=== PATIENT | male | born 1980 | race Caucasian/White ===

== ENCOUNTER 2019-06-30 16:49 | Emergency (ER) | payer BC ==
[2019-06-30 17:31] VITALS: BP 125/88
--- NOTE | 2019-06-30 19:04 | UC ---
Elbow Pain - HPI Summary HPI Summary: 38-year-old male presents with complaints of left elbow pain. Reports that 2 weeks ago he slipped while descending some stairs falling directly onto the left elbow. Complained of bruising and swelling to the elbow initially after the injury that has improved his have persistent pain in the elbow since that time. States pain worsens with any type of movement. Has taken over-the- counter ibuprofen with some relief in the pain. Denies any numbness or tingling. - History of Current Complaint Chief Complaint: UCUpperExtremity Stated Complaint: LEFT ELBOW INJURY Time Seen by Provider: 06/30/19 18:46 Hx Obtained From: Patient Pain Intensity: 7 - Allergies/Home Medications Allergies/Adverse Reactions: Allergies Allergy/AdvReac Type Severity Reaction Status Date / Time Penicillins Allergy See Comment Verified 06/30/19 17:31 Home Medications: Home Medications Escitalopram * [Lexapro *] 20 mg PO DAILY 06/05/19 [History Confirmed 06/30/19] Levothyroxine TAB* [Synthroid TAB*] 88 mcg PO 0800 06/05/19 [History Confirmed 06/30/19] amLODIPine TAB* [Norvasc 5 mg TAB*] 5 mg PO DAILY 06/05/19 [History Confirmed ] traZODone TAB* [Desyrel TAB*] 50 mg PO BEDTIME 06/05/19 [History Confirmed 06/29] Gabapentin 300 mg PO DAILY 06/30/19 [History Confirmed 06/30/19] Naproxen [Naproxen 500 mg tab] 500 mg PO Q12HR PRN #30 tablet 06/30/19 [Rx] Tramadol HCl 50 mg PO BID PRN 06/30/19 [History Confirmed 06/30/19] PMH/Surg Hx/FS Hx/Imm Hx Endocrine History: Thyroid Disease Cardiovascular History: Hypertension Psychological History: Depression - Surgical History Surgical History: Yes Surgery Procedure, Year, and Place: Right leg ablation - Family History Family History: Denies significant family medical history - Social History Occupation: Employed Full-time Lives: With Family Alcohol Use: Occasionally Substance Use Type: None Smoking Status (MU): Heavy Every Day Tobacco Smoker Type: Cigarettes Amount Used/How Often: 1/2 ppd Review of Systems All Other Systems Reviewed And Are Negative: Yes Constitutional: Positive: Negative Skin: Positive: Bruising Respiratory: Positive: Negative Cardiovascular: Positive: Negative Gastrointestinal: Positive: Negative Genitourinary: Positive: Negative Motor: Negative: Weakness Neurovascular: Negative: Decreased Sensation Musculoskeletal: Positive: Arthralgia - See HPI. Negative: Decreased ROM Neurological/Mental Status: Positive: Negative Is Patient Immunocompromised?: No Physical Exam - Summary Physical Exam Summary: GENERAL APPEARANCE: Well developed, well nourished, alert and cooperative, and appears to be in no acute distress. CARDIAC: Normal S1 and S2. No S3, S4 or murmurs. Rhythm is regular. There is no peripheral edema, cyanosis or pallor. Extremities are warm and well perfused. Capillary refill is less than 2 seconds. Peripheral pulses intact. LUNGS: Clear to auscultation without rales, rhonchi, wheezing or diminished breath sounds. ABDOMEN: Positive bowel sounds. Soft, nondistended, nontender. No guarding or rebound. No masses or hepatosplenomegally. MUSKULOSKELETAL: ROM intact to all extremities. No joint erythema or tenderness. Normal muscular development. Normal gait. EXTREMITIES: Tenderness over the radial head of the left elbow without gross deformity, ecchymosis, or edema. Full ROM. Circulation and sensation intact. SKIN: Skin normal color, texture and turgor with no lesions or eruptions. Triage Information Reviewed: Yes Vital Signs: Initial Vital Signs Temp 97.5 F 06/30/19 17:26 Pulse 81 06/30/19 17:26 Resp 16 06/30/19 17:26 BP 125/88 06/30/19 17:26 Pulse Ox 99 06/30/19 17:26 Vital Signs Reviewed: Yes Diagnostics - Radiology No standard instances Radiology Interpretation Completed By: ED Physician - Anterior fat pad. No obvious injury but clinical concern for a radial head fracture. Elbow Pain Course/Dx - Course Course Of Treatment: 38-year-old male presents with complaints of left elbow pain. Reports that 2 weeks ago he slipped while descending some stairs falling directly onto the left elbow. Complained of bruising and swelling to the elbow initially after the injury that has improved his have persistent pain in the elbow since that time. States pain worsens with any type of movement. Has taken over-the- counter ibuprofen with some relief in the pain. Denies any numbness or tingling. Afebrile. Vital signs stable. On exam patient had tenderness over the radial head of the left elbow without gross deformity, ecchymosis, or edema. Full ROM. Circulation and sensation intact. Remainder of exam was unremarkable. Preliminary reading of x-ray showed an anterior fat pad with no obvious injury but clinical concern for a radial head fracture. Reviewed results with the patient. Recommending conservative treatment for radial head fracture including naproxen 500 mg every 12 hours as needed for pain, RICE, and passive range of motion exercises. He is to follow-up with orthopedic surgery in 3-5 days for further evaluation and treatment. Anticipatory guidance and warning symptoms were reviewed with the patient. Verbalized understanding and agrees with plan of care. - Differential Dx/Diagnosis Differential Diagnosis/HQI/PQRI: Contusion, Dislocation, Fracture (Closed), Sprain Provider Diagnosis: Fracture of radial head, left, closed Discharge ED - Sign-Out/Discharge Documenting (check all that apply): Patient Departure All imaging exams completed and their final reports reviewed: No - Discharge Plan Condition: Stable Disposition: HOME Prescriptions: Naproxen [Naproxen 500 mg tab] 500 mg PO Q12HR PRN #30 tablet PRN Reason: Pain - Mild Patient Education Materials: Elbow Fracture (ED) Referrals: Jennifer Crespo [Primary Care Provider] - Petey Lai MD [Medical Doctor] - 3 Days (Call for appointment.) Additional Instructions: The x-ray performed in the clinic today showed evidence of a possible radial head fracture. The x-ray will be reviewed by the radiologist we'll contact you if they see anything that changes plan of care. Rest the elbow as much as possible. It is important that she do gentle range of motion exercises every 1-2 hours while awake to help prevent the elbow from freezing up. Apply ice to the affected area for 15-20 minutes at least 4 times a day to help with the pain and swelling. Elevate the arm to help reduce swelling. Take acetaminophen (Tylenol) or ibuprofen (Advil, Motrin) according to directions as needed for pain. Follow up with orthopedic surgery in 3-5 days if symptoms do not improve. Call for an appointment. Seek immediate medical attention if you have severe pain not managed with pain medication, you lose function of the arm, develop numbness or tingling in the arm, hand, or fingers, or have any worsening of symptoms. - Billing Disposition and Condition Condition: STABLE Disposition: Home
--- NOTE | 2019-07-01 08:42 | UC ---
- Progress Note Progress Note: elbow xray w/ effusion, ? frx radial head "Report: #. Mildly displaced anterior fat pad consistent with a small joint effusion. #. No cortical disruption or suspicious trabecular irregularity to suggest fracture. #. Normal articular alignment and preserved joint spaces. #. Mild lateral soft tissue swelling. IMPRESSION: #. Small joint effusion. #. While no discrete fracture is visualized an occult fracture is not excluded given the history of injury and presence of joint effusion. A fracture involving the radial head would be most likely in an adult." -needs ortho follow up, not as needed as stated above. Course/Dx - Diagnoses Provider Diagnoses: Fracture of radial head, left, closed Discharge ED - Sign-Out/Discharge Documenting (check all that apply): Post-Discharge Follow Up All imaging exams completed and their final reports reviewed: Yes - Discharge Plan Condition: Stable Disposition: HOME Prescriptions: Naproxen [Naproxen 500 mg tab] 500 mg PO Q12HR PRN #30 tablet PRN Reason: Pain - Mild Patient Education Materials: Elbow Fracture (ED) Referrals: Petey Lai MD [Medical Doctor] - 3 Days (Call for appointment.) Jennifer Crespo [Primary Care Provider] - Additional Instructions: The x-ray performed in the clinic today showed evidence of a possible radial head fracture. The x-ray will be reviewed by the radiologist we'll contact you if they see anything that changes plan of care. Rest the elbow as much as possible. It is important that she do gentle range of motion exercises every 1-2 hours while awake to help prevent the elbow from freezing up. Apply ice to the affected area for 15-20 minutes at least 4 times a day to help with the pain and swelling. Elevate the arm to help reduce swelling. Take acetaminophen (Tylenol) or ibuprofen (Advil, Motrin) according to directions as needed for pain. Follow up with orthopedic surgery in 3-5 days if symptoms do not improve. Call for an appointment. Seek immediate medical attention if you have severe pain not managed with pain medication, you lose function of the arm, develop numbness or tingling in the arm, hand, or fingers, or have any worsening of symptoms. - Billing Disposition and Condition Condition: STABLE Disposition: Home
== END 2019-06-30 19:09 | disposition home or self-care (01) ==
LOC: UCCORT 16:49
DX: S52.122A Displaced fracture of head of left radius, initial encounter for closed fracture (principal); I10 Essential (primary) hypertension; E07.9 Disorder of thyroid, unspecified; F17.210 Nicotine dependence, cigarettes, uncomplicated; F32.9 Major depressive disorder, single episode, unspecified; Z79.899 Other long term (current) drug therapy; Z88.0 Allergy status to penicillin; W10.9XXA Fall (on) (from) unspecified stairs and steps, initial encounter; Y92.9 Unspecified place or not applicable
CPT/HCPCS: 99212; G0463